=== PATIENT | male | born 1945 | race Caucasian/White ===

== ENCOUNTER 2025-07-07 07:48 | Emergency (ER) | payer MEDICARE, OTHER, SELFPAY ==
[2025-07-07 07:50] VITALS: PULSE 25; RESP 16; TEMP 36; O2SAT 99; BMI 28.6
--- NOTE | 2025-07-07 07:59 | EKG12_ITS ---
Test Reason : [place] Blood Pressure : */* mmHG Vent. Rate : 25 BPM Atrial Rate : 50 BPM P-R Int : 266 ms QRS Dur : 176 ms QT Int : 608 ms P-R-T Axes : 38 -42 10 degrees QTcB Int : 392 ms AV Block Sinus bradycardia high grade AVB Left axis deviation Left bundle branch block Abnormal ECG Confirmed by Nii Persaud ([id number]), dictionary editor HERBERT PEREZ ([id number]) on 07/08/2025 10:18:35 AM Referred By: Confirmed By: Nii Persaud
--- NOTE | 2025-07-07 08:00 | EX.ED.DYSGE1 ---
HPI History of Present Illness Chief Complaint: Palpitations Narrative Narrative: 80-year-old male, past medical history of hypertension, takes amlodipine and a beta-oliva at low doses presents with shortness of breath that has had for a week as well as fatigue. He denies any chest pain or other symptoms. He states that it happened all of a sudden over the last week. He drives truck, and is originally from [place]. He states he sees a towel hemmer in his home state once a year. He was told that he does not need to come back except for yearly visit. He may have had slight leg swelling over the last week but denies any fevers or chills. No exacerbating or alleviating factors. [facility] Medical History (Updated 07/07/25 @ 08:31 by Jaun Ha MD) Hypertension Allergy/AdvReac Type Severity Reaction Status Date / Time No Known Allergies Allergy Verified 07/07/25 07:59 Surgical History (Updated 07/07/25 @ 08:14 by Nara Keith) History of appendectomy Social History Smoking Status: Never smoker ROS ROS ED ROS Narrative Review of systems positive for fatigue and shortness of breath with questionable mild leg swelling. Denies fevers or chills. Mild dyspnea on exertion. No chest pain, no nausea or vomiting. No exacerbating or alleviating factors. EXAM Physical Exam Narrative Exam Narrative: Afebrile. Vital signs noted. Nontoxic-appearing. Cardiovascular examination reveals extreme bradycardia in the 20s. Lungs are clear to auscultation bilaterally. Abdomen is soft and nontender with positive bowel sounds. Neurological examination nonfocal, nonlateralizing. No appreciable pedal edema. Const Vital Signs: 07/07/25 07:50 07/07/25 08:02 07/07/25 08:02 Temperature 96.8 F L Temperature Source Temporal Pulse Rate 25 L Respiratory Rate 16 Blood Pressure 138/62 H Blood Pressure Mean 87 Pulse Ox 99 Oxygen Delivery Method Room Air Room Air MDM MDM MDM Narrative Medical decision making narrative: Differential diagnosis includes but not limited to symptomatic bradycardia from use of beta-oliva versus heart block versus pneumonia versus pneumothorax versus dehydration. I reviewed his laboratory work that returned thus far and he has a normal white count of 8.2 with hemoglobin 14.7, hematocrit 44.6, platelet count normal at 203. Chest x-ray 1 view interpreted by myself independently shows no evidence of pneumonia or pneumothorax. I do not feel antibiotics are indicated. I reviewed the radiology report which confirms my independent interpretation. Of significance, EKG was obtained and interpreted by myself independently which shows third-degree heart block at a rate of 25 bpm. Patient placed on pacer pads, however he is maintaining his blood pressure currently. I discussed this with Dr. Persaud with cardiology. There is no available EP physician, her towel hemmer she can insert a pacemaker at this facility. While he is stable currently, I do feel that he requires transfer more emergently. I discussed the patient with the heavy duty press operator at [facility]. He has been accepted by Dr. Frazier with cardiology at [facility]. Disposition is transferred in stable condition. History & Record Review Discussion w/independent historian: Patient Additional record(s) reviewed:: No prior records Lab Data Attestation: I reviewed the patient's lab results. Labs: Laboratory Results - last 24 hr 07/07/25 08:04 WBC 8.2 RBC 4.75 Hgb 14.7 Hct 44.6 MCV 93.9 MCH 30.9 MCHC 33.0 RDW Std Deviation 46.6 H RDW Coeff of Norbert 13.4 Plt Count 203 MPV 9.4 Immature Gran % (Auto) 0.600 Neut % (Auto) 63.1 Lymph % (Auto) 23.6 [place] % (Auto) 6.9 Eos % (Auto) 5.1 H Baso % (Auto) 0.7 Absolute Neuts (auto) 5.2 Absolute Lymphs (auto) 1.93 Nucleated RBC % 0 Radiography Chest X-Ray - ED: 1 View, Read by ED Physician and No Acute Disease Diagnostic Testing: Clinical Impression(s) from Imaging Studies Chest X-Ray 07/07/25 08:11 IMPRESSION: Mild left hemidiaphragm elevation is seen, and left basilar mild airspace disease is seen. Differential diagnosis includes atelectasis and pneumonitis. No evidence of pulmonary edema. No pleural effusion is seen. No pneumothorax is identified. The cardiomediastinal silhouette is remarkable for a somewhat tortuous and calcified aorta. No evidence of cardiomegaly. No acute osseous process is seen. Reading Location: [facility] Management Discussion w/another healthcare provider: [employer] (Dr. Persaud, cardiology as well as heavy duty press operator at [facility]) Critical Care Time Critical Care Time: Yes Critical care time (excluding procedures): 30-74 minutes (31), Including time spent:, Discussing w/Patient &/or Family/Central Supply Clerk, Discussing w/Consultants and Arranging Admission or Transfer Discharge Plan Triage Chief Complaint: Palpitations ED Provider: Jaun Ha Dx/Rx/DC Orders Clinical Impression: Third degree heart block, Bradycardia, History of hypertension Print Language: Bulgarian Disposition Disposition: Acute Care Hospital Discharge Location: [facility]
[2025-07-07 08:02] VITALS: BP 138/62
--- NOTE | 2025-07-07 08:11 | RAD_ITS ---
PROCEDURE: CHEST 1 VIEW (PORTABLE) 07/07/2025 REASON FOR EXAM: CHEST PAIN TECHNIQUE: Frontal view of the chest. COMPARISON: None. RAD/Chest 1 View (Portable) IMPRESSION: Mild left hemidiaphragm elevation is seen, and left basilar mild airspace disea se is seen. Differential diagnosis includes atelectasis and pneumonitis. No evidence of pulmonary edema. No pleural effusion is seen. No pneumothorax is identified. The cardiomediastinal silhouette is remarkable for a somewhat tortuous and calc ified aorta. No evidence of cardiomegaly. No acute osseous process is seen. Reading Location: [place] [id number]
[2025-07-07 08:14] LABS: Hematocrit 44.6 % (40-54); Hemoglobin 14.7 g/dL (13.0-16.5); Immature Granulocytes Count 0.050 X10^3/uL (0.0-0.0); Mean Corp Hgb Conc 33.0 g/dL (32-36); Mean Corpuscular Volume 93.9 fL (80-94); Mean Platelet Vol. 9.4 fl (6.2-12.0); NRBC Flagged by Analyzer 0 % (0-5); Platelet Count 203 K/mm3 (150-450); RBC Distribution Width CV 13.4 % (11.6-14.6); RBC Distribution Width SD 46.6 fl (35.1-43.9); Red Blood Count 4.75 M/mm3 (4.6-6.2); White Blood Count 8.2 K/mm3 (4.4-11.0)
--- NOTE | 2025-07-07 08:29 | ED.RN ---
This RN attempted to call aby Corbin. taliness partner, no answer but VM left.
[2025-07-07 08:30] VITALS: BP 118/60
--- NOTE | 2025-07-07 08:48 | ED.RN ---
Lin sister updated on plan of care per pt. request
[2025-07-07 09:19] LABS: Magnesium 2.3 mg/dL (1.5-2.2); Troponin T High Sensitivity 18 ng/L (<=22)
[2025-07-07 09:30] VITALS: BP 112/62
[2025-07-07 09:47] LABS: Anion Gap 12 (5-15); BUN 18 mg/dL (4-19); BUN/Creat Ratio 10.8 RATIO (10-20); Calcium,Total 8.9 mg/dL (7.6-11.0); Carbon Dioxide 16.7 mmol/L (21.0-32.0); Chloride 106 mmol/L (98-108); Estimated Creatinine Clearance 44.02 ml/min (50-250); Glucose 108 mg/dL (70-99); Potassium 4.5 mmol/L (3.3-5.1)
[2025-07-07 10:21] VITALS: BP 108/60; PULSE 24; RESP 20; TEMP 36.6; O2SAT 100
== END 2025-07-07 10:22 | disposition short-term general hospital (02) ==
LOC: ED 08:58
PROVIDERS: Emergency Provider Emergency Medicine; Visit Provider Emergency Medicine
DX: I44.2 Atrioventricular block, complete (principal); I10 Essential (primary) hypertension; Z79.899 Other long term (current) drug therapy; R06.02 Shortness of breath; R00.1 Bradycardia, unspecified
CPT/HCPCS: 71045; 80048; 83735; 84484; 85025; 93005; 99285; A4216